=== PATIENT | male | born 1975 | race African-American/Black ===

== ENCOUNTER 2024-09-08 08:09 | Emergency (ER) | payer BC, OTHER ==
[~2024-09-08] VITALS: Ht 190.5 cm; Wt 123.8 kg
[2024-09-08 09:00] VITALS: BP 150/91; PULSE 90; RESP 15; TEMP 99.1; O2SAT 96
--- NOTE | 2024-09-08 09:08 | DVH ---
CLINICAL INDICATION: LEFT SHOULDER PAIN TECHNIQUE: XY L SHOULDER 2+ VIEW XRAY Comparison: None FINDINGS/IMPRESSION: : There is no evidence of acute fracture or dislocation. Soft tissues are unremarkable.
[2024-09-08] MEDS ORDERED: IBUP-1456 PO (09:22)
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
== END 2024-09-08 09:29 | disposition home or self-care (01) ==
LOC: ER 08:09
DX: S46.812A Strain of other muscles, fascia and tendons at shoulder and upper arm level, left arm, initial encounter (principal); S00.12XA Contusion of left eyelid and periocular area, initial encounter; V49.88XA Car occupant (driver) (passenger) injured in other specified transport accidents, initial encounter; Y93.I9 Activity, other involving external motion; Y92.488 Other paved roadways as the place of occurrence of the external cause; Y99.8 Other external cause status
CPT/HCPCS: 73030

== ENCOUNTER 2024-12-26 07:26 | Day surgery (SDC) | payer BC, OTHER ==
[~2024-12-26] VITALS: Ht 190.5 cm; Wt 104.3 kg
[~2024-12-26 07:26] MED LIST: ATOR20TA50 PO; HYDR12.59 PO
[2024-12-26] MEDS ORDERED: ceFAZolin 1GM/50ML 100 ML IV ONE (07:31)
[2024-12-26] MEDS ORDERED: BUPIVACAINE HCL 50 ML ONE (07:54)
[2024-12-26] MEDS ORDERED: KETOROLAC TROMETH 30 MG/ML 1ML VIAL IV ONE (08:00)
[2024-12-26] MEDS ORDERED: HYDROmorphone HCL 2 MG/ML VL/or syr IV PRN (08:00)
[2024-12-26] MEDS ORDERED: hydrALAZINE HCL 20 MG/ML VL IV PRN (08:00)
[2024-12-26] MEDS ORDERED: METOCLOPRAMIDE HCL 5MG/ml INJ 2ml VIAL IV ONE (08:00)
[2024-12-26] MEDS ORDERED: LIDOCAINE W/ EPINEPHRINE 1% 20ML VIAL ONE (08:01)
[2024-12-26] MEDS ORDERED: fentaNYL CITRATE 100 MCG/2 ML VL ONE (08:03)
[2024-12-26] MEDS ORDERED: MIDAZOLAM HCL 2MG/2ML 2ml VIAL (1mg/ml) ONE (08:03)
[2024-12-26] MEDS ORDERED: LIDOCAINE 2% (LOCAL ANESTH.) PF 5ml SDV ONE (08:04)
[2024-12-26] MEDS ORDERED: ONDANSETRON HCL 4 MG/2 ML VIAL ONE (08:04)
[2024-12-26] MEDS ORDERED: DexAMETHasone SOD PHOS 10MG/1ML VIAL INJ ONE (08:04)
[2024-12-26] MEDS ORDERED: ROCURONIUM 10MG/ML 10ML VIAL IV ONE (08:05)
[2024-12-26] MEDS ORDERED: PROPOFOL 10 MG/ML 20 ML IV ONE (08:05)
[2024-12-26] MEDS: EPINEPHrine HCL 1 MG/1 ML AMP ONE ×2 (10:00→12:33)
[2024-12-26] MEDS ORDERED: ePHEDrine SULFATE 50 MG/ML AMP ONE (10:04)
[2024-12-26] MEDS ORDERED: TRANEXAMIC ACID 20 ML ONE (10:21)
[2024-12-26] MEDS ORDERED: TRANEXAMIC ACID 10 ML ONE (10:21)
[2024-12-26] MEDS ORDERED: HYDROmorphone HCL 2 MG/ML VL/or syr ONE (10:26)
[2024-12-26] MEDS: BUPIVACAINE 0.25% INJ 50ML VIAL ONE (10:27)
[2024-12-26] MEDS ORDERED: PHENYLEPHRINE HCL 10 MG/ML VL ONE (10:29)
[2024-12-26] MEDS ORDERED: hydrALAZINE HCL 20 MG/ML VL ONE (10:53)
[2024-12-26] MEDS: BACITRACIN TOP OINT 1 UD PKG TOP ONE (12:54)
[2024-12-26] MEDS ORDERED: SUGAMMADEX 200mg/2ml Vial (100MG/ML) IV ONE (13:03)
[2024-12-26 13:31] VITALS: PULSE 91; RESP 10; TEMP 97.8; O2SAT 94
[2024-12-26] MEDS: ONDANSETRON HCL 4 MG/2 ML VIAL IV ONE (14:45)
--- NOTE | 2024-12-26 14:47 | DVH ---
FLUOROSCOPY TIME: 231 seconds TECHNIQUE: Intraoperative radiographs of the left shoulder were obtained. COMPARISON: None FINDINGS: Refer to intraoperative report for further evaluation. IMPRESSION: Refer to intraoperative report for further evaluation.
[2024-12-26 15:30] VITALS: BP 122/89; PULSE 89; RESP 12; O2SAT 97
--- NOTE | 2024-12-26 17:22 | DVHOP2 ---
Operative Report - 2 Report Details Date: 12/26/24 Preop Diagnosis: Left acromioclavicular joint dislocation Postop Diagnosis: Left acromioclavicular joint dislocation with proximal biceps tendon tear Surgeon: Parvin Sierra MD Anesthesiologist: Wild rowley CRNA Anesthesia: General, Regional Implant: Arthrex tightrope implant x1 Consent: The patient was informed of the risks and benefits of the procedure. These include but are not limited to complications of anesthesia, postoperative infection, incomplete relief of symptoms, recurrence of symptoms, damage to blood vessels, nerves and tendons, deep venous thrombosis, pulmonary embolism and possible need for repeat surgery in the future. Complications: None Estimated Blood Loss: 100 mL Indications for Surgery: The patient is a 49-year-old male who presented to the clinic with a history of left AC joint pain. He had dislocation of the AC joint. This was type 4. Nonoperative and operative management options were discussed. Surgery in the form of shoulder arthroscopy with AC joint reconstruction was discussed with the patient was very tender and wanted to proceed with stabilization. He had failed nonoperative management. He is very active. Benefits, risks and treatment alternatives were discussed. Conservative management with a observation was discussed and initially recommended. However after thorough discussion with him, we decided to proceed with the surgical option. Surgical complications including neurovascular injury, axillary nerve injury, redislocation, fracture of the coracoid, nonunion, malunion were discussed. He decided to proceed with the surgical option. Name of Procedure Performed Left shoulder arthroscopy assisted AC joint reconstruction with Arthrex dog bone implant and tibialis posterior allograft. Procedure Details Procedure Details: The patient was identified in the preoperative holding area and the surgical site was marked. The consent was verified. He was brought into the operating room and placed supine on the operating table. General anesthesia was administered. Intravenous antibiotics were given. He was brought up into the beach chair position. All the bony prominences were appropriately padded. The extremity was prepped and draped in the usual sterile manner. A time-out was called to confirm the identity of the patient, the site of surgery, the availability of implants and x-rays and allergies to medications. A standard posterior portal was established. A 30 degree scope was inserted a standard anterior portal established, a probe was inserted and the findings were as follows 1. Significant fraying of the superior labrum and the biceps tendon 2. Intact subscapularis 3. Intact supraspinatus 4. Intact glenohumeral cartilage 5. No loose bodies Based on these findings, I debrided the undersurface of the biceps tendon. It was stable after debridement. No significant synovitis was noted. The coracoid was exposed. The CA ligament was exposed. Pectoralis minor tendon was noted and released. The undersurface of the coracoid was identified. This was carefully released up to the medial aspect. Next the lateral portal was created. This was used for better trajectory of the guide. A 70 degree scope was inserted. Next the superior portion of the clavicle was exposed. The skin and the subcutaneous tissue were dissected. The deep fascia was incised. The guide was placed. The guide pin was inserted from the clavicle, to the superior portion of the coracoid and through the inferior portion of the coracoid. This was adjusted as necessary. X-rays were obtained sequentially to confirm the trajectory of the pin. After the pin was inserted, then anterior wire was inserted and retrieved through the lateral portal through the cannula. Next a hemostat was inserted on the medial aspect of the coracoid to spread the t issues. Next the Nitinol wire was inserted with the help of a switching stick and a cannula. This was now retrieved through the lateral portal as well. Similar steps were repeated for anterior to the clavicle and lateral to the coracoid. This formed a loop around the base of the coracoid. Next, the dog bone button was inserted and placed on the undersurface of the coracoid. E xcellent positioning was noted. The adjustable loop was pulled from the superior surface to reduce the clavicle. The clavicle was posteriorly displaced as well. This was now reduced back to the AC joint. The AC joint was highly unstable and I decided to pass the graft around the AC joint instead of the usual position around the coracoid and the clavicle. Initally, an attempt was made to pass the graft around the coracoid but there was some soft tissue resistance noted. So I decided to pass it around the coracoid instead. For this the graft was tied to the superior portion of the button with the help of the sutures. Then it was wrapped around the acromion and brought back onto the AC joint and then stitched back together. Excellent stabilization of the AC joint was noted. The joint was well reduced. Irrigation was given. The skin incisions were closed with a Vicryl and 3-0 nylo n. Sterile dressing was applied. The arm was placed in a shoulder immobilizer. Disposition: Good, the patient was extubated and taken to the recovery without any complication Plan: To follow up in one week. To stay in brace at all times. We will obtain x-rays at that time. Condition Good Disposition Home (Send was) PARVIN SIERRA MD Dec 26, 2024 17:21
== END 2024-12-26 16:05 | disposition home or self-care (01) ==
LOC: SUR 07:26
PROVIDERS: ATTEND Orthopaedic Surgery Sports Medicine
DX: S43.52XA Sprain of left acromioclavicular joint, initial encounter (principal); S43.102A Unspecified dislocation of left acromioclavicular joint, initial encounter; S46.212A Strain of muscle, fascia and tendon of other parts of biceps, left arm, initial encounter; X58.XXXA Exposure to other specified factors, initial encounter; Y93.89 Activity, other specified; Y92.89 Other specified places as the place of occurrence of the external cause; Y99.8 Other external cause status
CPT/HCPCS: 29822; 29999; 73020; 76000; C1713; J0171; J0360; J0690; J1100; J1171; J1885; J2003; J2250; J2371; J2405; J2704; J3010; J3490